=== PATIENT | female | born 1975 | race American Indian/Alaskan Native ===

== ENCOUNTER 2017-08-27 19:49 | Outpatient (CLI) | payer MEDICAID ==
[2017-08-27 20:08] VITALS: BP 122/63
[2017-08-27] MEDS ORDERED: LACTATED RINGERS 500 ML IV ONE (20:08)
[2017-08-27 20:59] LABS: Bilirubin,Urine NEG (Negative); Blood,Urine NEG (Negative); Ketones,Urine NEG (Negative); Leukocyte Esterase,Urine NEG (Negative); Nitrite,Urine NEG (Negative); Protein,Urine <15 mg/dL mg/dL (Negative); Urobilinogen,Urine < 2.0 mg/dL (<2.0)
== END 2017-08-27 21:15 | disposition home or self-care (01) ==
LOC: TRG 19:49
PROVIDERS: ATTEND Obstetrics & Gynecology
DX: O09.522 Supervision of elderly multigravida, second trimester (principal); O47.02 False labor before 37 completed weeks of gestation, second trimester; Z3A.24 24 weeks gestation of pregnancy
CPT/HCPCS: 81001

== ENCOUNTER 2017-10-24 13:30 | Outpatient (CLI) | payer MEDICAID ==
[2017-10-24] MEDS ORDERED: LACTATED RINGERS 500 ML IV ONE ×2 (13:59→15:51)
[2017-10-24 14:47] LABS: Hematocrit 36.3 % (30.3-42.9); Hemoglobin 12.4 gm/dl (10.1-14.3); Mean Corpuscular HGB Conc 34 % (30-34); Mean Corpuscular Hemoglobin 31 pg (28-32); Mean Corpuscular Volume 90 fl (79-97); Platelet Count 143 K/mm3 (140-440); Red Blood Count 4.04 M/mm3 (3.65-5.03); Red Cell Distribution Width 14.1 % (13.2-15.2); White Blood Count 11.1 K/mm3 (4.5-11.0)
[2017-10-24 14:50] LABS: Bacteria,Urine 2+ /HPF (Negative); Bilirubin,Urine NEG (Negative); Blood,Urine NEG (Negative); Ketones,Urine NEG (Negative); Leukocyte Esterase,Urine NEG (Negative); Nitrite,Urine NEG (Negative); Protein,Urine <15 mg/dL mg/dL (Negative); Urobilinogen,Urine < 2.0 mg/dL (<2.0)
[2017-10-24 15:09] LABS: Alanine Aminotransferase 11 units/L (7-56); Lactate Dehydrogenase 209 units/L (91-180); Uric Acid 5.2 mg/dL (3.5-7.6)
[2017-10-24 15:29] VITALS: BP 121/68
== END 2017-10-24 15:50 | disposition home or self-care (01) ==
LOC: TRG 13:30
PROVIDERS: ATTEND Obstetrics & Gynecology
DX: O09.523 Supervision of elderly multigravida, third trimester (principal); O47.03 False labor before 37 completed weeks of gestation, third trimester; Z3A.33 33 weeks gestation of pregnancy
CPT/HCPCS: 36415; 59025; 81001; 82565; 83615; 84450; 84460; 84550; 85027

== ENCOUNTER 2017-11-27 12:18 | Outpatient (CLI) | payer MEDICAID ==
[2017-12-02 07:00] VITALS: BP 119/71
== END 2017-11-27 14:40 | disposition home or self-care (01) ==
LOC: TRG 12:18
PROVIDERS: ATTEND Obstetrics & Gynecology
DX: O09.523 Supervision of elderly multigravida, third trimester (principal); O47.1 False labor at or after 37 completed weeks of gestation; Z3A.38 38 weeks gestation of pregnancy
CPT/HCPCS: 59025